=== PATIENT | female | born 1950 | race Caucasian/White ===

== ENCOUNTER → 2016-08-27 | Outpatient (CLI) | payer MEDICARE, MEDICAID ==
[~2016-08-27] MED LIST: ALEN70TA48 PO; ASPI-917 PO; DIPH25CA84 PO; INSU100V SQ; INSU100V8 SQ; INSU200I SQ; LINA5TAB PO; LOSA50TA17 PO; OMEP20CA10 PO; POLY17PO18 PO; PRAV20TA48 PO; RANI-198 PO; SERT100T12 PO; TRAM50TA53 PO; TRAZ-170 PO; [UNRECOGNIZED DRUG - CODE] PO
== END ==
LOC: WC.BC 15:32
PROVIDERS: ATTEND Nurse Practitioner Family
DX: N60.42 Mammary duct ectasia of left breast (principal); N64.59 Other signs and symptoms in breast; N64.52 Nipple discharge
CPT/HCPCS: 76642; G0206; G0279